=== PATIENT | male | born 1960 | race Caucasian/White ===

== ENCOUNTER → 2024-03-04 | Outpatient (CLI) | payer SELFPAY ==
--- NOTE | 2024-03-04 17:45 | XR ---
EXAMINATION TYPE: XR chest 2V DATE OF EXAM: 03/04/2024 3:40 PM CLINICAL INDICATION:Male, 63 years old with history of COUGH, UNSPECIFIED; H COMPARISON: Chest radiographs from 02/04/2011 TECHNIQUE: XR chest 2V Frontal and lateral views of the chest. FINDINGS: Lungs/Pleura: There is flattening of the diaphragm with increased lucency of the lungs. No evidence o f pneumothorax, pleural effusion or focal consolidation. Pulmonary vascularity: Unremarkable. Heart/mediastinum: Cardiomediastinal silhouette is unremarkable. Musculoskeletal: No acute osseous pathology. IMPRESSION: 1. No acute cardiopulmonary disease process. 2. COPD changes.
== END | disposition home or self-care (01) ==
LOC: RADXRMAIN 15:25
PROVIDERS: ATTEND Family Medicine
DX: J44.9 Chronic obstructive pulmonary disease, unspecified (principal)
CPT/HCPCS: 71046

== ENCOUNTER → 2024-05-03 | Outpatient (CLI) | payer OTHER ==
[2024-05-04 05:56] LABS: Alternaria alternata IgE <0.10 kU/L; Aspergillus fumagatus IgE <0.10 kU/L; Birch IgE 2.07 kU/L; Cladosporian herbarum IgE <0.10 kU/L; Elm IgE 0.75 kU/L; Maple (Box Elder) IgE 0.26 kU/L; Oak IgE 0.65 kU/L; Ragweed,Common IgE 5.73 kU/L
== END | disposition home or self-care (01) ==
LOC: LABWHC1 15:22
PROVIDERS: ATTEND Internal Medicine
DX: J45.30 Mild persistent asthma, uncomplicated (principal)
CPT/HCPCS: 36415; 82785; 85008; 86003